=== PATIENT | female | born 1950 | race Caucasian/White ===

== ENCOUNTER → 2023-09-07 13:29 | Outpatient (REF) | payer OTHER, SELFPAY | LOC: DHVS 13:29 | PROVIDERS: ATTENDING PHYSICIAN Surgery Vascular Surgery; FAMILY PHYSICIAN Family Medicine | DX: I65.21 Occlusion and stenosis of right carotid artery (principal); I73.9 Peripheral vascular disease, unspecified | CPT/HCPCS: 93880; 93922; 93925 ==

== ENCOUNTER → 2024-03-06 14:04 | Outpatient (REF) | payer OTHER, SELFPAY | LOC: RAD 14:04 | PROVIDERS: ATTENDING PHYSICIAN Surgery Vascular Surgery; FAMILY PHYSICIAN Family Medicine | DX: I73.9 Peripheral vascular disease, unspecified (principal) | CPT/HCPCS: 93880; 93922; 93925 ==

== ENCOUNTER → 2024-09-22 08:59 | Outpatient (REF) | payer OTHER, SELFPAY | LOC: RAD 08:59 | PROVIDERS: ATTENDING PHYSICIAN Surgery Vascular Surgery; FAMILY PHYSICIAN Family Medicine | DX: I73.9 Peripheral vascular disease, unspecified (principal); I65.21 Occlusion and stenosis of right carotid artery | CPT/HCPCS: 93880; 93922; 93925 ==